=== PATIENT | male | born 1980 | race Caucasian/White ===

== ENCOUNTER 2018-05-04 03:57 | Observation (INO) | payer SELFPAY ==
[2018-05-04 05:22] LABS: #Eosinphils 0.2 thou/uL (0.0-0.7); #Lymphocytes 2.2 thou/uL (1.20-3.40); #Monocytes 0.8 thou/uL (0.11-0.59); #Neutrophils 4.2 thou/uL (1.40-6.50); %Basophils 0.1 % (0.0-1.0); %Eosinophils 2.6 % (0.0-10.0); %Lymphocytes 29.8 % (21.0-51.0); %Monocytes 10.7 % (0.0-10.0); %Neutrophils 56.8 % (42.0-75.0); Hemoglobin 14.5 g/dL (14.0-18.0); Mean Corpuscular HGB CONC 34.6 g/dL (32.0-36.0); Mean Corpuscular Hemoglobin 32.2 pg (27.0-31.0); Mean Corpuscular Volume 93.1 fl (80.0-94.0); Mean Platelet Volume 6.5 fL (7.4-10.4); Platelet Count 271 thou/uL (130-400); RBC Distribution Width 11.3 % (11.5-14.5); Red Blood Cell (RBC) Count 4.49 mill/uL (4.70-6.10); White Blood Cell (WBC) Count 7.3 thou/uL (4.8-10.8)
[2018-05-04 05:28] LABS: Prothrombin Time 13.2 SEC (12.0-14.7)
[2018-05-04 05:42] LABS: ALT (SGPT) 38 U/L (8-55); AST (SGOT) 21 U/L (5-34); Albumin 3.9 g/dL (3.5-5.0); Alkaline Phosphatase 87 U/L (40-150); Anion Gap 12 mmol/L (10-20); BUN (Urea Nitrogen) 14 mg/dL (8.9-20.6); Bilirubin, Total 0.3 mg/dL (0.2-1.2); CK (CPK) 102 U/L (30-200); Calc. Creatinine Clearance 0 mL/min (70-130); Calcium 8.4 mg/dL (7.8-10.44); Carbon Dioxide 24 mmol/L (22-29); Chloride 108 mmol/L (98-107); Estimated GFR-MDRD Greater than 90; Globulin 2.5 g/dL (2.4-3.5); Glucose 105 mg/dL (70-105); Potassium 4.3 mmol/L (3.5-5.1); Protein, Total 6.4 g/dL (6.0-8.3); Sodium 140 mmol/L (136-145)
[2018-05-04] MEDS ORDERED: Sodium Chloride 0.9% 1,000 ML IV SCH (06:47)
[2018-05-04] MEDS ORDERED: Ondansetron ODT 4 MG TAB SL PRN (06:47)
[2018-05-04] MEDS ORDERED: Acetaminophen 325 MG TAB PO PRN (06:47)
[2018-05-04] MEDS ORDERED: Ondansetron HCl/PF 4 MG/2 ML Vial IVP PRN (06:47)
[2018-05-04 11:05] LABS: PTT 27.8 SEC (22.9-36.1); Prothrombin Time 13.4 SEC (12.0-14.7)
[2018-05-04 12:04] VITALS: BP 127/64; TEMP 98.1
--- NOTE | 2018-05-04 14:39 | SS ---
REASON FOR ADMISSION: Copperhead snake bite. HISTORY OF PRESENT ILLNESS: The patient gives history of walking in his flip flops near [employer] [place] his [place]. He was having a torch light as it was 10: 40 p.m. He noticed something near his leg and the next thing he knew was a snake had put its fangs on his right foot near the fifth toe. He thinks it was copperhead snake. The patient had excruciating pain and went to [facility]. He was given 4 vials of CroFab and was transferred here for higher level of care. Currently, the swelling and pain is slowly receding but still has significant pain. No complaints of bleeding anywhere including urine or stool. No fever. PAST MEDICAL/SURGICAL HISTORY: None. CURRENT MEDICATIONS: None. ALLERGIES: CODEINE AND MORPHINE. PERSONAL HISTORY: Smokes one pack a day. Does not abuse alcohol or drugs. Lives with his . FAMILY HISTORY: Mom of unknown cancer at the age of 56 years. Father of cirrhosis and its complications at the age of 70 years. REVIEW OF SYSTEMS: The following complete review of systems was negative, unless otherwise mentioned in the HPI or below: Constitutional: Weight loss or gain, ability to conduct usual activities. Skin: Rash, itching. Eyes: Double vision, pain. ENT/Mouth: Nose bleeding, neck stiffness, pain, tenderness. Cardiovascular: Palpitations, dyspnea on exertion, orthopnea. Respiratory: Shortness of breath, wheezing, cough, hemoptysis, fever or night sweats. Gastrointestinal: Poor appetite, abdominal pain, heartburn, nausea, vomiting, constipation, or diarrhea. Genitourinary: Urgency, frequency, dysuria, nocturia. Musculoskeletal: Pain, swelling. Neurologic/Psychiatric: Anxiety, depression. Allergy/Immunologic: Skin rash, bleeding tendency. PHYSICAL EXAMINATION: GENERAL: The patient is a 38-year-old male, who is currently not in any acute distress. VITAL SIGNS: Blood pressure 138/90, pulse 56 per minute, respiratory rate 18 per minute, temperature 97.8 degrees Fahrenheit, saturating 97% on room air. NECK: Supple, no elevated JVD. HEENT: Extraocular muscles intact. Pupils reacting to light. Oral cavity, mucous membranes are moist. No exudates or congestion. CARDIOVASCULAR: S1, S2 heard. Regular rhythm. RESPIRATORY: Air entry 2+ bilateral. Scattered rhonchi plus. No rales or wheezes. ABDOMEN: Soft, bowel sounds heard. No tenderness, rigidity or guarding. EXTREMITIES: Right foot has fang benson over the dorsum of fifth metatarsal head. He also has mild erythema and more so of edema of the forefoot. No ischemic ulcerations or gangrene. CENTRAL NERVOUS SYSTEM: No gross focal deficits noted. Patient is alert, awake , oriented well. PSYCHIATRIC: The patient's mood is euthymic. No hallucinations or delusions. LABORATORY AND X-RAY FINDINGS: White count of 7, H&H 14 and 41, platelet count 271, MCV is 93 with 56% neutrophils. PT, INR, PTT within normal limits. Fibrinogen levels are 276, a repeat is 245. Electrolytes are stable. BUN 14, creatinine 0.8, glucose 105. Liver enzymes within normal limits. Albumin is 3.9. CLINICAL IMPRESSION AND PLAN: The patient was given 4 vials of CroFab for copperhead snake bite to his right foot on arrival. His symptoms are resolving slowly. He is wanting to go home now. The patient will be shortly discharged home. He is advised to come back to the ER if his pain and swelling worsens or the patient develops discoloration of his foot including bleeding in urine or rectum. He clearly understands this and wants to go home at present. Please note this is a same day admit discharge summary. MTDD
== END 2018-05-04 12:45 | disposition home or self-care (01) ==
LOC: ERS 03:57 → 2SW 04:30
PROVIDERS: ADMIT Internal Medicine; ATTEND Internal Medicine
DX: T63.061A Toxic effect of venom of other North and South American snake, accidental (unintentional), initial encounter (principal); F17.210 Nicotine dependence, cigarettes, uncomplicated; Z88.5 Allergy status to narcotic agent
CPT/HCPCS: 36415; 80053; 82550; 85025; 85384; 85610; 85730; 99285; G0378